=== PATIENT | female | born 1985 | race American Indian/Alaskan Native ===

== ENCOUNTER 2017-01-01 00:21 | Emergency (ER) | payer OTHER, MEDICAID ==
[2017-01-01 00:39] VITALS: BMI 27.4
[2017-01-01 00:41] VITALS: TEMP 98.1; O2SAT 100
--- NOTE | 2017-01-01 01:00 | ED PDOC ---
Arrival/HPI - General Chief Complaint: Abdominal Pain Time Seen by Provider: 01/01/17 00:55 Historian: Patient - History of Present Illness Narrative History of Present Illness (Text): 01/01/17 01:00 Janell Lay is a 31 year old female, with no significant past medical history, currently P:3, who presents to the emergency department complaining of nausea, diarrhea, and intermittent abdominal cramps.Pt. feels it was "food poisoning."The patient denies any fever, chills, chest pain, shortness of breath, vomiting, vaginal bleeding, vaginal discharge, urinary symptoms, back pain, neck pain, headache, dizziness, or any other complaints. Time/Duration: Other (2 days) Symptom Onset: Gradual Symptom Course: Unchanged Quality: Cramping Activities at Onset: Rest, Light Context: Home Past Medical History - Provider Review Nursing Documentation Reviewed: Yes - Tetanus Immunization Tetanus Immunization: Unknown - Psychiatric Hx Psychophysiologic Disorder: No Hx Substance Use: No - Surgical History Hx Cholecystectomy: Yes - Suicidal Assessment Feels Threatened In Home Enviroment: No Family/Social History - Physician Review Nursing Documentation Reviewed: Yes Family/Social History: No Known Family HX Smoking Status: Never Smoked Hx Alcohol Use: No Hx Substance Use: No Allergies/Home Meds Allergies/Adverse Reactions: Allergies No Known Allergies Allergy (Verified 10/04/16 19:27) Home Medications: Home Meds Medication Instructions Recorded Confirmed Ranitidine HCl [Ranitidine 75] mg PO BID 01/01/17 Review of Systems - Physician Review All systems were reviewed & negative as marked: Yes - Review of Systems Constitutional: Normal. absent: Fevers Eyes: Normal ENT: Normal Respiratory: Normal. absent: SOB, Cough Cardiovascular: Normal. absent: Chest Pain Gastrointestinal: Abdominal Pain, Diarrhea, Nausea. absent: Vomiting Genitourinary Female: Normal. absent: Dysuria, Frequency, Hematuria, Urine Output Changes, Vaginal Bleeding, Vaginal Discharge Musculoskeletal: Normal. absent: Back Pain, Neck Pain Skin: Normal. absent: Rash Neurological: Normal. absent: Headache, Dizziness Endocrine: Normal Hemo/Lymphatic: Normal Psychiatric: Normal Physical Exam Vital Signs Reviewed: Yes Vital Signs Temp Pulse Resp BP Pulse Ox 01/01/17 02:58 63 H 145/91 H 100 01/01/17 00:40 98.1 F 69 16 137/85 100 Temperature: Afebrile Blood Pressure: Normal Pulse: Regular Respiratory Rate: Normal Appearance: Positive for: Well-Appearing, Non-Toxic, Comfortable Pain Distress: None Mental Status: Positive for: Alert and Oriented X 3 - Systems Exam Head: Present: Atraumatic, Normocephalic Pupils: Present: PERRL Extroacular Muscles: Present: EOMI Conjunctiva: Present: Normal Mouth: Present: Moist Mucous Membranes Neck: Present: Normal Range of Motion Respiratory/Chest: Present: Clear to Auscultation, Good Air Exchange. No: Respiratory Distress, Accessory Muscle Use Cardiovascular: Present: Regular Rate and Rhythm, Normal S1, S2. No: Murmurs Abdomen: Present: Distention (Distention consistent with gestational age), Normal Bowel Sounds. No: Tenderness, Peritoneal Signs Back: Present: Normal Inspection Upper Extremity: Present: Normal Inspection. No: Cyanosis, Edema Lower Extremity: Present: Normal Inspection. No: Edema Neurological: Present: GCS=15, CN II-XII Intact, Speech Normal Skin: Present: Warm, Dry, Normal Color. No: Rashes Psychiatric: Present: Alert, Oriented x 3, Normal Insight, Normal Concentration Medical Decision Making ED Course and Treatment: 01/01/17 01:00 Impression: 31 year old female complaining of intermittent abdominal cramping, nausea, and diarrhea for 2 days Differential Diagnosis included but are not limited to: gastroenteritis Plan: -- Transvaginal US -- Labs, Beta-HCG -- Urinalysis -- IV fluids -- Reassess and disposition Progress Notes: 01/01/17 02:42 Reviewed sono, Transvaginal US shows: Gestation: Single live intrauterine gestation. heart rate of 156 beats per minute. [place]-rump length of 1.95 cm, correlating with gestational age of 8 weeks 4 days. Uterus/cervix: No subchorionic hemorrhage. No cervical dilatation or effacement. Ovaries: RIGHT ovary: Normal. LEFT ovary: 1.8 x 1.9 x 1.8 cm anechoic lesion. No adnexal masses. Free fluid: No significant free fluid. IMPRESSION: 1. Single live intrauterine gestation. 2. LEFT ovarian cyst. 3. Incidental/non-acute findings are described above. 01/01/17 04:25 On reevaluation the patient feels better and is in no acute distress. I have discussed the results and plan with the patient, who expresses understanding. Patient given the opportunity to ask question, all questions were answered and there is agreement with the plan to discharge the patient home. Patient is stable for discharge. Patient was instructed to follow up with physician/clinic in 1-2 days or return if symptoms persist/worsen or new concerning symptoms arise. - Lab Interpretations Lab Results: 01/01/17 01:20 01/01/17 01:20 Lab Results 01/01/17 01:20: WBC 12.7 H, RBC 3.64, Hgb 10.4 L, Hct 29.7 L, MCV 81.6, MCH 28.6 , MCHC 35.0, RDW 15.4 H, Plt Count 328, MPV 9.7 01/01/17 01:20: Beta HCG, Quant 277529.00 H 01/01/17 01:20: Sodium 136, Potassium 3.4 L, Chloride 102, Carbon Dioxide 20 L, Anion Gap 17, BUN 9, Creatinine 0.5, Est GFR ( Amer) > 60, Est GFR (Non- Af Amer) > 60, Random Glucose 129 H, Calcium 9.5, Total Bilirubin 0.5, AST 28, ALT 44, Alkaline Phosphatase 57, Total Protein 8.4 H, Albumin 4.3, Globulin 4.1 , Albumin/Globulin Ratio 1.0 L 01/01/17 01:20: Urine Color Light yellow, Urine Appearance Clear, Urine pH 7.0, Ur Specific [place] 1.010, Urine Protein Negative, Urine Glucose (UA) Negative, Urine Ketones Negative, Urine Blood Negative, Urine Nitrate Negative, Urine Bilirubin Negative, Urine Urobilinogen 0.2, Ur Leukocyte Esterase Negative, Urine HCG, Qual Positive I have reviewed the lab results: Yes - RAD Interpretation Radiology Orders: 01/01/17 01:04 OB TRANSVAGINAL [US] Stat Sales Engineering Manager: Radiologist - Medication Orders Current Medication Orders: Discontinued Medications Sodium Chloride (Sodium Chloride 0.9%) 1,000 mls @ 999 mls/hr IV .[id number] STA Stop: 01/01/17 02:04 Last Admin: 01/01/17 01:42 Dose: 999 mls/hr - Scribe Statement The provider has reviewed the documentation as recorded by the José Luis Sung Provider Attestation: All medical record entries made by the Scribe were at my direction and personally dictated by me. I have reviewed the chart and agree that the record accurately reflects my personal performance of the history, physical exam, medical decision making, and the department course for this patient. I have also personally directed, reviewed, and agree with the discharge instructions and disposition. Disposition/Present on Arrival - Present on Arrival Any Indicators Present on Arrival: No History of DVT/PE: No History of Uncontrolled Diabetes: No Urinary Catheter: No History of Decub. Ulcer: No History Surgical Site Infection Following: None - Disposition Have Diagnosis and Disposition been Completed?: Yes Diagnosis: Gastroenteritis, Disposition: HOME/ ROUTINE Disposition Time: 04:24 Patient Plan: Discharge Patient Problems: Current Active Problems Problem Status Onset Gastroenteritis Acute Acute Condition: STABLE Discharge Instructions (ExitCare): Gastroenteritis (ED) Additional Instructions: Drink plenty of fluids/[place] diet next couple of days/follow up with your doctor this week/any recurrent worsening symptoms return to the emergency room
[2017-01-01] MEDS ORDERED: Sodium Chloride 0.9% 1,000 ML IV STA (01:04)
[2017-01-01 01:26] LABS: HEMATOCRIT 29.7 % (36.0-48.0); MEAN CELL VOLUME 81.6 fL (80.0-105.0); MEAN CORPUSCULAR HEMOGLOBIN 28.6 pg (25.0-35.0); MEAN PLATELET VOLUME 9.7 fl (7.0-11.0); RED CELL DISTRIBUTION WIDTH 15.4 % (11.5-14.5); WHITE BLOOD COUNT 12.7 10^3/ul (4.5-11.0)
[2017-01-01 01:39] LABS: ALKALINE PHOSPHATASE 57 U/L (38-133); ALT/SGPT 44 U/L (7-56); AST/SGOT 28 U/L (15-39); BILIRUBIN,TOTAL 0.5 mg/dL (0.2-1.3); BLOOD UREA NITROGEN 9 mg/dL (7-21); CALCIUM 9.5 mg/dL (8.4-10.5); CARBON DIOXIDE 20 mmol/L (21-33); CHLORIDE 102 mmol/L (98-107); GFR AFRICAN-AMERICAN > 60; GLUCOSE,RANDOM 129 mg/dL (70-110); POTASSIUM 3.4 mmol/L (3.6-5.0); SODIUM 136 mmol/L (132-148); TOTAL PROTEIN 8.4 g/dL (5.8-8.3)
[2017-01-01 01:51] LABS: URINE BILIRUBIN NEGATIVE (NEGATIVE); URINE BLOOD NEGATIVE (NEGATIVE); URINE GLUCOSE (UA) NEGATIVE (NEGATIVE); URINE KETONE NEGATIVE (NEGATIVE); URINE LEUKOCYTE ESTERASE NEGATIVE Leu/uL (NEGATIVE); URINE PROTEIN NEGATIVE mg/dL (<30 mg/dL); URINE UROBILINOGEN 0.2 E.U./dL (<1 E.U./dL)
[2017-01-01 01:56] LABS: URINE APPEARANCE CLEAR (CLEAR); URINE COLOR LIGHT YELLOW (YELLOW)
[2017-01-01 04:45] VITALS: RESP 16
[2017-01-01 04:49] VITALS: BP 142/72; PULSE 62
--- NOTE | 2017-01-01 09:10 | US ---
Pelvic ultrasound History: Pain. Technique: Transabdominal and transvaginal ultrasonography evaluation. Findings: The uterus is anteverted and measures 16.3 x 7.7 x 10.3 centimeters. Single intrauterine gestational sac with mean sac diameter measuring 3.8 centimeters. This corresponds to gestational age of 9 weeks 1 day. A yolk sac measuring 0.4 centimeter noted. pole with crown-rump length of 2.3 centimeter corresponding to gestational age of 9 weeks. heart rate identified with 156-172 beats per minute. No definite abnormality in the cervix. The right ovary measures 3.7 x 1.7 x 4.1 centimeter. Left ovary measures 4.4 x 2 x 4.3 centimeters. Doppler flow seen within both ovaries. Small cyst in the left ovary measuring 2 x 1.3 x 1.8 centimeter. No significant free fluid in the cul-de-sac. Impression: Single live intrauterine gestation as described above. Small left ovarian cyst. Other findings as above. Please note that this report is in general agreement with the preliminary report provided by [facility].
== END 2017-01-01 04:47 | disposition home or self-care (01) ==
LOC: ED 00:21
DX: O26.891 Other specified pregnancy related conditions, first trimester (principal); K52.9 Noninfective gastroenteritis and colitis, unspecified; Z3A.08 8 weeks gestation of pregnancy
CPT/HCPCS: 76817; 80053; 81003; 84702; 84703; 85027; 99284; J7040